=== PATIENT | male | born 1960 | race Two or more races ===

== ENCOUNTER 2018-01-15 08:30 | Outpatient (CLI) | payer OTHER | END 2018-01-15 08:35 | disposition home or self-care (01) | LOC: RX STUDY 08:30 | DX: R13.19 Other dysphagia (principal) ==

== ENCOUNTER 2020-07-23 08:10 | Outpatient (CLI) | payer OTHER | END 2020-07-23 08:13 | disposition home or self-care (01) | LOC: RX STUDY 08:10 | PROVIDERS: ATTEND Internal Medicine Gastroenterology | DX: R13.14 Dysphagia, pharyngoesophageal phase (principal); B96.81 Helicobacter pylori [H. pylori] as the cause of diseases classified elsewhere; K21.9 Gastro-esophageal reflux disease without esophagitis ==